=== PATIENT | male | born 1965 | race Caucasian/White ===

== ENCOUNTER 2019-09-03 13:22 | Emergency (ER) | payer BC, OTHER ==
--- NOTE | 2019-09-03 14:07 | ER Document Report ---
HPI - HPI Patient complains to provider of: Ring stuck on left ring finger Time Seen by Provider: 09/03/19 13:52 Onset: Other - States started swelling today Onset/Duration: Gradual Quality of pain: Throbbing Context: 53-year-old male presented to ED for ring stuck on his left ring finger. He states his been on his hand for many years but today his finger started itching he was scratching the finger. He states now the finger is hurting where the ring is stuck and he cannot move it. States he has been trying to remove it for about 2 hours. Did give permission to remove the ring and cut it if necessary. Ring has been cut and removed from his hand and the ring was returned to the patient. Associated Symptoms: Other - See HPI Exacerbated by: Denies Relieved by: Denies Similar symptoms previously: No Recently seen / treated by doctor: No - ROS ROS below otherwise negative: No - CONSTITUTIONAL Constitutional: DENIES: Fever, Chills - EENT EENT: DENIES: Sore Throat, Ear Pain, Nasal Drainage-Clear, Nasal Drainage- Purulent, Congestion, Eye problems - NEURO Neurology: DENIES: Headache, Weakness, Vision blurred, Dizzinesss / Vertigo - CARDIOVASCULAR Cardiovascular: DENIES: Chest pain - RESPIRATORY Respiratory: DENIES: Trouble Breathing, Coughing - GASTROINTESTINAL Gastrointestinal: DENIES: Abdominal Pain, Nausea, Patient vomiting, Diarrhea, Constipation, Black / Bloody Stools - URINARY Urinary: DENIES: Dysuria, Urgency, Frequency - REPRODUCTIVE Reproductive: DENIES: :, Postmenopausal, Abnormal bleeding / discharge - MUSCULOSKELETAL Musculoskeletal: REPORTS: Extremity pain, Swelling Notes: Patient states he has had the ring on his hand for many years. He states about 2 hours ago his finger started itching and when he scratched it the ring finger started swelling. He states then the finger became very painful as he cannot move his ring. Past Medical History - General Information source: Patient - Social History Smoking Status: Current Every Day Smoker Cigarette use (# per day): Yes Smoking Education Provided: Yes Frequency of alcohol use: None Drug Abuse: None Lives with: Family Family History: Reviewed & Not Pertinent Patient has suicidal ideation: No Patient has homicidal ideation: No - Past Medical History Cardiac Medical History: Reports: Hx Hypercholesterolemia, Hx Hypertension Pulmonary Medical History: Reports: None EENT Medical History: Reports: None Neurological Medical History: Reports: None Endocrine Medical History: Reports: None Renal/ Medical History: Reports: None Malignancy Medical History: Reports None GI Medical History: Reports: Hx Gastroesophageal Reflux Disease Musculoskeletal Medical History: Reports None Skin Medical History: Reports None Psychiatric Medical History: Reports: None Traumatic Medical History: Reports: None Infectious Medical History: Reports: None Surgical Hx: Negative Past Surgical History: Reports: None Vertical Provider Document - CONSTITUTIONAL Agree With Documented VS: Yes - Hypertensive has not taken his blood pressure medicine this morning Exam Limitations: No Limitations General Appearance: WD/WN, Mild Distress - INFECTION CONTROL TRAVEL OUTSIDE OF THE [place] IN LAST 30 DAYS: No - HEENT HEENT: Atraumatic, Normal ENT Exam, Normocephalic, PERRLA - NECK Neck: Normal Inspection, Supple - RESPIRATORY Respiratory: Breath Sounds Normal, No Respiratory Distress, Chest Non-Tender - CARDIOVASCULAR Cardiovascular: Regular Rate, Regular Rhythm - MUSCULOSKELETAL/EXTREMETIES Musculoskeletal/Extremeties: Tender Notes: Ring stuck on the ring finger of left hand. He states he had an itch to the ring finger this morning and scratched it and then the finger came swollen causing his ring to become very tight and bite into his skin. We did cut the ring off with clippers after he gave verbal consent. Patient tolerated the procedure well. - NEURO Level of Consciousness: Awake, Alert, Appropriate Motor/Sensory: No Motor Deficit, No Sensory Deficit, No Pronator Drift Deep Tendon Reflexes: 2+ Course - Re-evaluation Re-evalutation: 09/03/19 23:18 After several attempts to read move the ring use and water-soluble jelly and was no results. The ring was then cut off with clippers. Patient did give consent for the ring to be cut off. The ring was given to the patient after it was removed. Patient was instructed please if he has any swelling to the hand to remove the ring as soon as his hand starts to swell. Patient's verbalized that his had passed out him but not taking the ring off as soon as his finger itched. Patient was discharged home. - Vital Signs Vital signs: Temp Pulse Resp BP Pulse Ox 97.6 F 89 16 179/113 H 94 09/03/19 13:26 09/03/19 13:26 09/03/19 13:26 09/03/19 13:26 09/03/19 13:26 Discharge - Discharge Clinical Impression: Ring stuck on finger removed Condition: Stable Disposition: HOME, SELF-CARE Additional Instructions: Your ring was removed from your left ring finger due to swelling of the left ring finger. We have given you back the ring after we cut the ring and removed it from your finger. Please remove any jewelry if you notice any swelling as soon as you notice it before it becomes too large to remove jewelry. These do not scratch any fingers that have rings on without removing the jewelry first Diphenhydramine The use of diphenhydramine (Benadryl) has been recommended to control allergic symptoms. The 25 mg strength is available over- the-counter, as well as the elixir. This antihistamine is used for many symptoms. It's useful for itching, watering eyes and nose, allergic swelling, hives, and insect stings. The medication can be repeated four times daily. Age Elixir (12.5 mg/tsp) 25 mg pill 1 yr 1/4 tsp 2-3 yr 1/2 tsp 4-8 yr 1 tsp 9-14 yr 2 tsp one tab adult 1-2 tabs Antihistamines may cause drowsiness, especially with the first dose. Do not operate machinery or drive while under the effects of the medication. Do not combine the medication with alcohol, or with any other medication without talking to your doctor. Ice & Elevation Apply ice packs frequently against the painful area. Many different schedules are recommended, such as "20 minutes on, 20 minutes off" or "one hour ice, two hours rest." If you need to work, you may need to go longer between ice treatments. You should plan to have the area ice packed AT LEAST one-fourth of the time. The ice should be applied over the wrap, tape, or splint, or over a layer of cloth -- not directly against the skin. Some ice bags have a built-in cloth and can be put directly on the skin. Your injured part should be elevated as much as possible over the next 48 hours. Try to keep the injury above the level of the heart. Avoid use of the injured area. Elevation and rest will decrease the swelling. FOLLOW-UP CARE: If you have been referred to a physician for follow-up care, call the physicians office for an appointment as you were instructed or within the next two days. If you experience worsening or a significant change in your symptoms, notify the physician immediately or return to the Emergency Department at any time for re-evaluation. Forms: Elevated Blood Pressure, Smoking Cessation Education Referrals: [facility] [Primary Care Provider] - Follow up as needed
[2019-09-03 14:09] VITALS: BP 173/113
== END 2019-09-03 14:09 | disposition home or self-care (01) ==
LOC: ER 13:22
DX: S60.445A External constriction of left ring finger, initial encounter (principal); W49.04XA Ring or other jewelry causing external constriction, initial encounter; F17.210 Nicotine dependence, cigarettes, uncomplicated; E78.00 Pure hypercholesterolemia, unspecified; I10 Essential (primary) hypertension
CPT/HCPCS: 99283